=== PATIENT | male | born 1955 | race Caucasian/White ===

== ENCOUNTER → 2020-12-05 | Outpatient (CLI) | payer MEDICAID ==
[~2020-12-05] MED LIST: ASPI-496 PO; ATOR40TA78 PO; FENO160T PO; HYDR1TAB53 PO; TICA90TA PO; TRAM50TA2 PO
== END | disposition home or self-care (01) ==
LOC: CVU 12:22
PROVIDERS: ATTEND Internal Medicine Cardiovascular Disease
DX: I65.23 Occlusion and stenosis of bilateral carotid arteries (principal); E78.5 Hyperlipidemia, unspecified; I51.7 Cardiomegaly; Z87.891 Personal history of nicotine dependence
CPT/HCPCS: 93306; 93880